=== PATIENT | male | born 1945 | race Hispanic/Latino ===

== ENCOUNTER → 2019-06-04 | Outpatient (CLI) | payer OTHER | END | disposition home or self-care (01) | LOC: OIH 16:19 | PROVIDERS: ATTEND Family Medicine | DX: M17.11 Unilateral primary osteoarthritis, right knee (principal); M25.761 Osteophyte, right knee | CPT/HCPCS: 73562 ==

== ENCOUNTER → 2020-06-10 | Outpatient (CLI) | payer OTHER | END | disposition home or self-care (01) | LOC: OIH 08:36 | PROVIDERS: ATTEND Family Medicine | DX: M17.12 Unilateral primary osteoarthritis, left knee (principal); M25.562 Pain in left knee; M25.462 Effusion, left knee | CPT/HCPCS: 73562 ==

== ENCOUNTER → 2020-10-16 | Outpatient (CLI) | payer OTHER | END | disposition home or self-care (01) | LOC: RAH 07:56 | PROVIDERS: ATTEND Family Medicine | DX: S83.242A Other tear of medial meniscus, current injury, left knee, initial encounter (principal); M25.462 Effusion, left knee; M13.862 Other specified arthritis, left knee; X58.XXXA Exposure to other specified factors, initial encounter; Y93.89 Activity, other specified; Y92.89 Other specified places as the place of occurrence of the external cause; Y99.8 Other external cause status | CPT/HCPCS: 73721 ==

== ENCOUNTER 2021-04-05 06:10 | Observation (INO) | payer OTHER ==
[2021-04-01 09:41] LABS: APPEARANCE,URINE Clear (CLEAR); BILIRUBIN,URINE Negative (NEGATIVE); COLOR,URINE Yellow (YELLOW); GLUCOSE, URINE (UA) Negative (NEGATIVE); KETONES,URINE Negative (NEGATIVE); LEUKOCYTE ESTERASE ,URINE Negative (NEGATIVE); NITRATE,URINE Negative (NEGATIVE); OCCULT BLOOD,URINE Negative (NEGATIVE); PH,URINE 5.5 (5.0-8.0); PROTEIN,URINE Negative (NEGATIVE); UROBILINOGEN,URINE 0.2 mg/dL (0.2-1.0)
[2021-04-01 09:52] LABS: BASOPHILS % (AUTO) 1.5 % (0.0-5.0); HEMATOCRIT 37.3 % (42-54); LYMPHOCYTES % (AUTO) 39.6 % (21.0-51.0); MEAN CORPUSCULAR HEMOGLOBIN 29.1 pg (27.0-33.0); MEAN CORPUSCULAR VOLUME 88.4 fL (79-99); MONOCYTES % (AUTO) 7.6 % (3.0-13.0); PLATELET COUNT (AUTO) 287 K/uL (130-400); RED BLOOD CELL COUNT(AUTO) 4.22 MIL/uL (4.50-6.20); RED CELL DISTRIBUTION WIDTH 13.2 % (11.0-15.5); WHITE BLOOD COUNT (AUTO) 7.3 K/uL (4.8-10.8)
[2021-04-01 09:58] LABS: CREATININE 0.8 mg/dL (0.5-1.5); POTASSIUM 3.7 mmol/L (3.5-5.1)
[2021-04-01 10:02] LABS: INR 1.04 (0.85-1.15); PROTHROMBIN TIME 11.3 SEC (9.6-11.6)
[2021-04-01 10:07] VITALS: BP 172/88
[2021-04-05] VITALS (29 sets, daily range): BP systolic 108–156; BP diastolic 62–96
[~2021-04-05] VITALS: Ht 172.7 cm; Wt 99.4 kg
[2021-04-05] MEDS: CEFAZOLIN SODIUM 1 GM VIAL IVP SCH ×3 (06:00→15:11)
[~2021-04-05 06:10] MED LIST: AMLO-257 PO; ATOR20TA65 PO; GLIP5TAB11 PO; LOSA100T58 PO; METF-446 PO; MULT-1289 PO; PIOG30TA10 PO; TAMS-1 PO
[2021-04-05] MEDS ORDERED: 0.9%NACL 1000ML 1,000 ML IV ONE (07:09)
[2021-04-05] MEDS ORDERED: CEFAZOLIN SODIUM 1 GM VIAL ONE (07:28)
[2021-04-05] MEDS ORDERED: SUCCINYLCHOLINE CHLORIDE 20 MG/ML 10 ML VIAL ONE (07:52)
[2021-04-05] MEDS ORDERED: LIDOCAINE PF 100MG/5ML (2%) SYRINGE 5ML ONE (07:52)
[2021-04-05] MEDS ORDERED: MIDAZOLAM HCL 1 MG/ML 2ML VIAL ONE (07:53)
[2021-04-05] MEDS ORDERED: FENTANYL CITRATE PF 50 MCG/1 ML 2ML VIAL ONE ×2 (07:53→10:23)
[2021-04-05] MEDS ORDERED: PROPOFOL 10 MG/ML 20ML VIAL IV ONE (07:53)
[2021-04-05] MEDS ORDERED: ROCURONIUM 10MG/1ML SYR 10 MG/ML ML ONE (07:53)
[2021-04-05] MEDS ORDERED: ROPIVACAINE 0.5% 5MG/ML 30ML IJ ONE (08:32)
[2021-04-05] MEDS ORDERED: DEXAMETHASONE SOD PHOSPHATE 10MG/ML 1ML VIAL ONE (08:48)
[2021-04-05] MEDS ORDERED: TRANEXAMIC ACID 1000MG/10ML ONE ×2 (08:54→11:38)
[2021-04-05] MEDS ORDERED: PHENYLEPHRINE HCL 10 MG/ML 1ML VIAL IV ONE ×2 (09:23→09:24)
[2021-04-05] MEDS ORDERED: CEFAZOLIN SODIUM 1 GM VIAL IRRIG ONE (09:35)
[2021-04-05] MEDS ORDERED: FERROUS FUMARATE 324 MG TABLET PO PRN (11:00)
[2021-04-05] MEDS ORDERED: KCL 20 MEQ ERTAB PO PRN (11:00)
[2021-04-05] MEDS ORDERED: CALCIUM CARB 500MG PO PRN (11:00)
[2021-04-05] MEDS ORDERED: ONDANSETRON 4MG INJ IVP PRN (11:00)
[2021-04-05] MEDS ORDERED: DiphenhydrAMINE HCL 50 MG/ML VIAL IVP PRN (11:00)
[2021-04-05] MEDS: ACETAMINOPHEN 500 MG TABLET PO SCH ×2 (11:00→18:31)
[2021-04-05] MEDS ORDERED: KETOROLAC 15MG/ML VIAL (15MG/ML) IV PRN (11:00)
[2021-04-05] MEDS ORDERED: POTASSIUM CHLORIDE 20MEQ/100ML 100 ML IV PRN (11:00)
[2021-04-05] MEDS ORDERED: TEMAZEPAM 15 MG CAPSULE PO PRN (11:00)
[2021-04-05] MEDS ORDERED: LIDOCAINE HCL-MPF 1% 2ML VIAL IV PRN (11:00)
[2021-04-05] MEDS ORDERED: TRAMADOL HCL 50 MG TABLET PO PRN (11:00)
[2021-04-05] MEDS ORDERED: OXYCODONE HCL 5 MG TAB PO PRN ×2 (11:00)
[2021-04-05] MEDS ORDERED: POTASSIUM CHLORIDE 10% ELIXIR 20 MEQ/15 ML UDCUP PO PRN (11:00)
[2021-04-05] MEDS ORDERED: GLYCOPYRROLATE 1 MG/5 ML SYRINGE ONE (11:08)
[2021-04-05] MEDS ORDERED: NEOSTIGMINE 5MG/5ML SYR IV ONE (11:08)
[2021-04-05] MEDS: INSULIN HUMULIN R 100 UNIT/ML 3ML SQ SCH ×3 (11:30→21:00)
[2021-04-05] MEDS ORDERED: MEPERIDINE-PF 25 MG/ML SYG ONE (12:14)
[2021-04-05] MEDS: 0.9%NACL 1000ML 1,000 ML IV SCH ×2 (13:23→20:58)
[2021-04-05] MEDS: CELECOXIB 200 MG CAP PO SCH (20:54)
[2021-04-05] MEDS: METFORMIN HCL 500 MG TABLET PO SCH (20:54)
[2021-04-05] MEDS: PREGABALIN 25 MG CAP PO SCH (20:54)
[2021-04-05] MEDS: ASPIRIN 81 MG EC TAB PO SCH (20:54)
[2021-04-05] MEDS: FAMOTIDINE 20MG TAB PO SCH (20:54)
[2021-04-06] MEDS: CEFAZOLIN SODIUM 1 GM VIAL IVP SCH (00:56)
[2021-04-06 03:42] LABS: MEAN CORPUSCULAR HEMOGLOBIN 29.4 pg (27.0-33.0); MEAN CORPUSCULAR HGB CONC 34.1 g/dL (32.0-36.0); MEAN CORPUSCULAR VOLUME 86.1 fL (79-99); RED BLOOD CELL COUNT(AUTO) 3.95 MIL/uL (4.50-6.20); WHITE BLOOD COUNT (AUTO) 13.7 K/uL (4.8-10.8)
[2021-04-06 03:48] LABS: CREATININE 0.9 mg/dL (0.5-1.5); POTASSIUM 3.9 mmol/L (3.5-5.1)
[2021-04-06 03:56] VITALS: BP 125/79
[2021-04-06] MEDS: ACETAMINOPHEN 500 MG TABLET PO SCH ×3 (05:00→20:31)
[2021-04-06] MEDS: 0.9%NACL 1000ML 1,000 ML IV SCH (07:00)
[2021-04-06] MEDS: INSULIN HUMULIN R 100 UNIT/ML 3ML SQ SCH ×4 (07:02→20:42)
[2021-04-06 07:44] VITALS: BP 139/86
[2021-04-06] MEDS ORDERED: MULTIVITAMIN WITH MINERALS TABLET PO SCH (09:00)
[2021-04-06] MEDS: TAMSULOSIN HCL 0.4 MG CAP.ER.24H PO SCH (09:05)
[2021-04-06] MEDS: ASPIRIN 81 MG EC TAB PO SCH ×2 (09:05→20:30)
[2021-04-06] MEDS: ATORVASTATIN 20 MG TABLET PO SCH (09:05)
[2021-04-06] MEDS: AMLODIPINE 5 MG TAB PO SCH (09:05)
[2021-04-06] MEDS: CELECOXIB 200 MG CAP PO SCH ×2 (09:05→20:30)
[2021-04-06] MEDS: GLIPIZIDE 5 MG TABLET PO SCH (09:05)
[2021-04-06] MEDS: PREGABALIN 25 MG CAP PO SCH ×2 (09:05→20:30)
[2021-04-06] MEDS: METFORMIN HCL 500 MG TABLET PO SCH ×2 (09:05→20:34)
[2021-04-06] MEDS: PIOGLITAZONE 30MG TAB PO SCH (09:05)
[2021-04-06] MEDS: FAMOTIDINE 20MG TAB PO SCH ×2 (09:05→20:30)
[2021-04-06] MEDS: LOSARTAN 100 MG TABLET PO SCH (09:05)
[2021-04-06] MEDS: POLYETHYLENE GLYCOL 3350 17 GM POWD.PACK PO SCH (09:06)
[2021-04-06 11:00] VITALS: BP 126/84
[2021-04-06 16:00] VITALS: BP 147/90
[2021-04-06 20:51] VITALS: BP 142/89
[2021-04-07 00:03] VITALS: BP 156/87
[2021-04-07] MEDS: ACETAMINOPHEN 500 MG TABLET PO SCH ×3 (04:11→20:01)
[2021-04-07 04:40] VITALS: BP 138/89
[2021-04-07] MEDS: INSULIN HUMULIN R 100 UNIT/ML 3ML SQ SCH ×4 (06:40→20:06)
[2021-04-07 07:30] VITALS: BP 153/90
[2021-04-07] MEDS: ATORVASTATIN 20 MG TABLET PO SCH (09:05)
[2021-04-07] MEDS: PREGABALIN 25 MG CAP PO SCH ×2 (09:05→20:00)
[2021-04-07] MEDS: GLIPIZIDE 5 MG TABLET PO SCH (09:05)
[2021-04-07] MEDS: METFORMIN HCL 500 MG TABLET PO SCH ×2 (09:05→20:05)
[2021-04-07] MEDS: LOSARTAN 100 MG TABLET PO SCH (09:05)
[2021-04-07] MEDS: TAMSULOSIN HCL 0.4 MG CAP.ER.24H PO SCH (09:05)
[2021-04-07] MEDS: PIOGLITAZONE 30MG TAB PO SCH (09:05)
[2021-04-07] MEDS: ASPIRIN 81 MG EC TAB PO SCH ×2 (09:05→20:00)
[2021-04-07] MEDS: FAMOTIDINE 20MG TAB PO SCH ×2 (09:05→20:00)
[2021-04-07] MEDS: AMLODIPINE 5 MG TAB PO SCH (09:06)
[2021-04-07] MEDS: CELECOXIB 200 MG CAP PO SCH ×2 (09:07→20:00)
[2021-04-07] MEDS: POLYETHYLENE GLYCOL 3350 17 GM POWD.PACK PO SCH (09:08)
[2021-04-07 11:00] VITALS: BP 168/99
[2021-04-07] MEDS ORDERED: AEC81 PO (15:55)
[2021-04-07] MEDS ORDERED: HYDR-4060 PO (15:55)
[2021-04-07 16:00] VITALS: BP 142/83
[2021-04-08] MEDS ORDERED: BISACODYL 10 MG SUPP.RECT RC PRN (11:00)
== END 2021-04-07 20:25 | disposition home health service (06) ==
LOC: DAH 06:10 → DAHIP 06:11 → DAH 06:11 → 4AH 12:40
PROVIDERS: ADMIT Orthopaedic Surgery; ATTEND Orthopaedic Surgery
DX: M17.12 Unilateral primary osteoarthritis, left knee (principal); Z20.822 Contact with and (suspected) exposure to COVID-19; D62 Acute posthemorrhagic anemia; E11.9 Type 2 diabetes mellitus without complications; I10 Essential (primary) hypertension; E66.9 Obesity, unspecified; Z87.891 Personal history of nicotine dependence; Z79.899 Other long term (current) drug therapy
CPT/HCPCS: 27447; 36415 ×2; 64447; 76942; 80048 ×2; 81003; 82948 ×12; 85025; 85027; 85610; 87088; 87635; 87641; 93005; 96374; 96375; 96376; 97039 ×5; 97116 ×4; 97161; 97530 ×5; A4213; A4215; A4216; A4221; A4222; A4223 ×2; A4649 ×5; A4663; A4930; A5120; A9272; C1776; C9803; G0378 ×53; J0330; J0690 ×5; J1100; J1815 ×2; J1885; J2001; J2175; J2250; J2370 ×2; J2704; J2710; J2795; J3010 ×2; J3490 ×3; J7030 ×4

== ENCOUNTER → 2021-10-13 | Outpatient (CLI) | payer OTHER ==
[~2021-10-13] MED LIST changes: +AEC81 PO; +HYDR-4060 PO
== END | disposition home or self-care (01) ==
LOC: RAH 12:56
PROVIDERS: ATTEND Family Medicine
DX: M17.11 Unilateral primary osteoarthritis, right knee (principal); M25.561 Pain in right knee; E26.1 Secondary hyperaldosteronism
CPT/HCPCS: 73562

== ENCOUNTER → 2022-06-06 | Outpatient (CLI) | payer OTHER | END | disposition home or self-care (01) | LOC: RAH 12:38 | PROVIDERS: ATTEND Family Medicine | DX: I08.0 Rheumatic disorders of both mitral and aortic valves (principal); I10 Essential (primary) hypertension; R79.89 Other specified abnormal findings of blood chemistry | CPT/HCPCS: 93306 ==

== ENCOUNTER → 2022-06-13 | Outpatient (CLI) | payer OTHER | END | disposition home or self-care (01) | LOC: RAH 12:30 | PROVIDERS: ATTEND Family Medicine | DX: Z01.818 Encounter for other preprocedural examination (principal); I10 Essential (primary) hypertension | CPT/HCPCS: 71046 ==